=== PATIENT | female | born 1990 | race Caucasian/White ===

== ENCOUNTER 2017-07-24 20:57 | Emergency (ER) | payer OTHER ==
[~2017-07-24 20:57] MED LIST: IBUPROFEN800 MG PO; PERCOCET 325 MG1 TA2 PO; PRENATAL1 TA2 PO
[2017-07-24 21:10] VITALS: BP 127/82
== END 2017-07-24 22:51 | disposition admitted as inpatient to this hospital (09) ==
LOC: ERH 20:57
DX: R10.9 Unspecified abdominal pain (principal); R14.1 Gas pain; R11.0 Nausea
CPT/HCPCS: 81001; 81025; 99281